=== PATIENT | female | born 1995 | race Two or more races ===

== ENCOUNTER 2022-08-30 08:54 | Emergency (ER) | payer MEDICAID ==
[~2022-08-30] VITALS: Ht 160 cm; Wt 71.9 kg
[2022-08-30 10:38] LABS: Urine Bacteria FEW /hpf (None Seen); Urine Blood Negative /uL (Negative); Urine Mucus FEW (None Seen); Urine Specific Gravity 1.019 (1.001-1.035); Urine WBC 2 /hpf (0 - 5)
[2022-08-30] MEDS ORDERED: NITR-87 PO (11:59)
[2022-08-30 13:42] VITALS: BP 132/69
== END 2022-08-30 13:43 | disposition home or self-care (01) ==
LOC: ER 08:54
DX: O20.0 Threatened abortion (principal); O23.41 Unspecified infection of urinary tract in pregnancy, first trimester; N39.0 Urinary tract infection, site not specified; Z3A.01 Less than 8 weeks gestation of pregnancy
CPT/HCPCS: 36415; 76801; 76817; 81001; 84702

== ENCOUNTER 2023-03-06 11:05 | Observation (INO) | payer MEDICAID ==
[~2023-03-06 11:05] MED LIST: NITR-87 PO
== END 2023-03-06 14:40 | disposition home or self-care (01) ==
LOC: UNDOADMOB 11:05 → LDRP 11:05 → UNDODISOB 14:40
PROVIDERS: ADMIT Obstetrics & Gynecology; ATTEND Obstetrics & Gynecology
DX: O24.419 Gestational diabetes mellitus in pregnancy, unspecified control (principal); Z3A.32 32 weeks gestation of pregnancy
CPT/HCPCS: 59025; 76818; 81002; 82948; 94760; G0378

== ENCOUNTER 2023-03-08 08:45 | Observation (INO) | payer MEDICAID ==
[2023-03-08 10:34] LABS: Fern Testing Negative
[2023-03-08] MEDS ORDERED: PREN-96 PO (10:41)
== END 2023-03-08 11:02 | disposition home or self-care (01) ==
LOC: LDRP 08:45
PROVIDERS: ADMIT Obstetrics & Gynecology; ATTEND Obstetrics & Gynecology
DX: O24.419 Gestational diabetes mellitus in pregnancy, unspecified control (principal); O26.893 Other specified pregnancy related conditions, third trimester; N89.8 Other specified noninflammatory disorders of vagina; Z3A.32 32 weeks gestation of pregnancy
CPT/HCPCS: 59025; 76818; 81002; 84112; 94760; G0378; Q0114

== ENCOUNTER 2023-03-13 10:23 | Observation (INO) | payer MEDICAID ==
[~2023-03-13 10:23] MED LIST changes: +PREN-96 PO
== END 2023-03-13 13:00 | disposition home or self-care (01) ==
LOC: UNDOADMOB 10:23 → LDRP 10:23
PROVIDERS: ADMIT Obstetrics & Gynecology; ATTEND Obstetrics & Gynecology
DX: O24.419 Gestational diabetes mellitus in pregnancy, unspecified control (principal); Z3A.33 33 weeks gestation of pregnancy
CPT/HCPCS: 59025; 76818; 81002; 82948; 82962; G0378

== ENCOUNTER 2023-03-20 09:08 | Observation (INO) | payer MEDICAID | END 2023-03-20 11:59 | disposition home or self-care (01) | LOC: LDRP 10:31 → UNDOADMOB 10:31 → LDRP 10:58 → UNDODISOB 11:59 | PROVIDERS: ADMIT Obstetrics & Gynecology; ATTEND Obstetrics & Gynecology | DX: O24.419 Gestational diabetes mellitus in pregnancy, unspecified control (principal); Z3A.34 34 weeks gestation of pregnancy | CPT/HCPCS: 59025; 76818; 81002; 82948; 82962; 94760; G0378 ==

== ENCOUNTER 2023-03-27 09:04 | Observation (INO) | payer MEDICAID | END 2023-03-27 10:47 | disposition home or self-care (01) | LOC: UNDOADMOB 09:04 → LDRP 09:04 → UNDODISOB 10:47 | PROVIDERS: ADMIT Obstetrics & Gynecology; ATTEND Obstetrics & Gynecology | DX: O24.419 Gestational diabetes mellitus in pregnancy, unspecified control (principal); O26.853 Spotting complicating pregnancy, third trimester; O26.893 Other specified pregnancy related conditions, third trimester; R10.30 Lower abdominal pain, unspecified; O12.03 Gestational edema, third trimester; O99.891 Other specified diseases and conditions complicating pregnancy; M54.9 Dorsalgia, unspecified; Z3A.35 35 weeks gestation of pregnancy | CPT/HCPCS: 59025; 76818; 81002; 82948; 82962; G0378 ==

== ENCOUNTER 2023-03-31 11:21 | Observation (INO) | payer MEDICAID | END 2023-03-31 13:02 | disposition home or self-care (01) | LOC: LDRP 11:21 → UNDOADMOB 11:21 → LDRP 11:34 → UNDODISOB 13:02 | PROVIDERS: ADMIT Obstetrics & Gynecology; ATTEND Obstetrics & Gynecology | DX: O47.03 False labor before 37 completed weeks of gestation, third trimester (principal); O26.853 Spotting complicating pregnancy, third trimester; O24.419 Gestational diabetes mellitus in pregnancy, unspecified control; Z3A.36 36 weeks gestation of pregnancy | CPT/HCPCS: 59025; 81002; 94760; G0378 ==

== ENCOUNTER 2023-04-03 09:00 | Observation (INO) | payer MEDICAID | END 2023-04-03 10:43 | disposition home or self-care (01) | LOC: LDRP 09:00 → UNDOADMOB 09:00 → LDRP 09:25 | PROVIDERS: ADMIT Obstetrics & Gynecology; ATTEND Obstetrics & Gynecology | DX: O24.419 Gestational diabetes mellitus in pregnancy, unspecified control (principal); Z3A.36 36 weeks gestation of pregnancy | CPT/HCPCS: 59025; 76818; 81002; 82948; 82962; 94760; G0378 ==

== ENCOUNTER 2023-04-10 09:14 | Observation (INO) | payer MEDICAID | END 2023-04-10 10:39 | disposition home or self-care (01) | LOC: LDRP 09:14 → UNDOADMOB 09:14 → LDRP 09:24 → UNDODISOB 10:39 | PROVIDERS: ADMIT Obstetrics & Gynecology; ATTEND Obstetrics & Gynecology | DX: O24.419 Gestational diabetes mellitus in pregnancy, unspecified control (principal); Z3A.37 37 weeks gestation of pregnancy | CPT/HCPCS: 59025; 76818; 81002; 82948; 82962; 94760; G0378 ==

== ENCOUNTER 2023-04-17 09:55 | Observation (INO) | payer MEDICAID | END 2023-04-17 14:35 | disposition home or self-care (01) | LOC: UNDOADMOB 09:55 → LDRP 09:55 | PROVIDERS: ADMIT Obstetrics & Gynecology; ATTEND Obstetrics & Gynecology | DX: O24.419 Gestational diabetes mellitus in pregnancy, unspecified control (principal); Z3A.38 38 weeks gestation of pregnancy | CPT/HCPCS: 59025; 76818; 81002; 82948; G0378 ==

== ENCOUNTER 2024-09-20 10:00 | Observation (INO) | payer MEDICAID ==
[2024-09-20 11:19] LABS: Hematocrit 29.5 % (36.0-46.0); Hemoglobin 10.2 g/dL (12.2-16.2); Mean Corpuscular Hemoglobin 30.5 pg (28.0-32.0); Mean Corpuscular Volume 87.9 fL (80.0-100.0); Nucleated Red Blood Cells % 0.0 %
[2024-09-20 11:30] LABS: Albumin 4.0 g/dL (3.2-4.8); Alkaline Phosphatase 76 U/L (46-116); Anion Gap 7 (5-15); BUN/Creatinine Ratio 17.1 (10.0-20.0); Bilirubin, Total 0.3 mg/dL (0.2-1.0); Calcium 9.0 mg/dL (8.7-10.4); Carbon Dioxide 23 mmol/L (20-31); Chloride 107 mmol/L (98-107); Glucose 86 mg/dL (74-106); Potassium 3.5 mmol/L (3.5-5.1); Sodium 137 mmol/L (136-145); Total Protein 6.4 g/dL (5.7-8.2); Uric Acid 4.0 mg/dL (3.1-7.8)
[2024-09-20 11:32] LABS: Alanine Aminotransferase < 9 U/L (7-40); Blood Urea Nitrogen 6 mg/dL (9-23)
[2024-09-20 11:33] LABS: INR 0.9 (0.9-1.15); Partial Thromboplastin Time 26.6 SEC (24.5-34.5); Prothrombin Time 9.6 sec (9.3-11.8)
[2024-09-20 11:51] LABS: Protein, Urine 17.4 mg/dL (1-14)
[2024-09-20 13:45] LABS: Urine Amorphous Crystal FEW /hpf (None Seen); Urine Protein, UAD Negative (Negative)
--- NOTE | 2024-09-20 22:12 | DVHDS2 ---
Discharge Summary Date of Admission Sep 20, 2024 at 10:00 Date of Discharge: Sep 20, 2024 Admitting Diagnosis blurred vision rule out [facility] [place] Labs/Diagnostic Data: Laboratory Results Test 09/20/24 10:52 09/20/24 10:00 White Blood Count 10.2 10^3/uL (4.4-10.8) Red Blood Count 3.35 10^6/uL (4.0-5.20) Hemoglobin 10.2 g/dL (12.2-16.2) Hematocrit 29.5 % (36.0-46.0) Mean Corpuscular Volume 87.9 fL (80.0-100.0) Mean Corpuscular Hemoglobin 30.5 pg (28.0-32.0) Mean Corpuscular Hemoglobin Concent 34.6 g/dL (32.0-36.0) Red Cell Distribution Width 14.5 % (11.8-14.3) Platelet Count 251 10^3/uL (140-450) Mean Platelet Volume 8.5 fL (6.9-10.8) Neutrophils (%) (Auto) 75.2 % (37.0-80.0) Lymphocytes (%) (Auto) 19.2 % (10.0-50.0) Monocytes (%) (Auto) 4.7 % (0.0-12.0) Eosinophils (%) (Auto) 0.7 % (0.0-7.0) Basophils (%) (Auto) 0.2 % (0.0-2.0) Neutrophils # (Auto) 7.7 10 ^3/uL (1.6-8.6) Lymphocytes # (Auto) 2.0 10 ^3/uL (0.4-5.4) Monocytes # (Auto) 0.5 10 ^3/uL (0-1.3) Eosinophils # (Auto) 0.1 10 ^3/uL (0-0.8) Basophils # (Auto) 0 10 ^3/uL (0-0.2) Nucleated Red Blood Cells 0.0 % Prothrombin Time 9.6 sec (9.3-11.8) Prothrombin Time INR 0.90 (0.9-1.15) Activated Partial Thromboplast Time 26.6 SEC (24.5-34.5) Sodium Level 137 mmol/L (136-145) Potassium Level 3.5 mmol/L (3.5-5.1) Chloride Level 107 mmol/L (98-107) Carbon Dioxide Level 23 mmol/L (20-31) Anion Gap 7 (5-15) Blood Urea Nitrogen 6 mg/dL (9-23) Creatinine 0.35 mg/dL (0.550-1.02) Glomerular Filtration Rate Calc 144 mL/min (>90) BUN/Creatinine Ratio 17.1 (10.0-20.0) Serum Glucose 86 mg/dL (74-106) Uric Acid 4.0 mg/dL (3.1-7.8) Calcium Level 9.0 mg/dL (8.7-10.4) Total Bilirubin 0.3 mg/dL (0.2-1.0) Aspartate Amino Transferase (AST) 13 U/L (13-40) Alanine Aminotransferase (ALT) < 9 U/L (7-40) Alkaline Phosphatase 76 U/L (46-116) Total Protein 6.4 g/dL (5.7-8.2) Albumin 4.0 g/dL (3.2-4.8) Urine Color Colorless (Yellow) Urine Clarity Ex.turbid (Clear) Urine pH 8.0 (5.0-9.0) Urine Specific [place] 1.015 (1.001-1.035) Urine Protein Negative (Negative) Urine Ketones Negative (Negative) Urine Blood Negative /uL (Negative) Urine Nitrite Negative (Negative) Urine Bilirubin Negative (Negative) Urine Urobilinogen Normal mg/dL (Negative) Urine Leukocyte Esterase 3+ /uL (Negative) Urine RBC 2 /hpf (0 - 4) Urine Microscopic WBC 5 /HPF (0-5) Urine Squamous Epithelial Cells Few /hpf (<5) Urine Amorphous Crystals Few /hpf (None Seen) Urine Bacteria None seen /hpf (None Seen) Urine Creatinine 64.71 mg/dL (30.0-125.0) Urine Protein/Creatinine Ratio 0.27 Urine Glucose Normal mg/dL (Normal) Urine Total Protein 17.4 mg/dL (1-14) Other Laboratory Tests 09/20/24 10:52 Brief Hx & Hospital Course: NST performed reactive ; US reassuring Condition at Discharge: Good Final Diagnosis/Problems List Blurred Vision, no PIH , reassuring maternal and status Discharge Disposition: Home Discharge Instruct/Medications Diet: Regular Activity: No Restrictions, As Tolerated Scheduled Nitrofurantoin Monohydrate Mac (Macrobid), 100 MG PO BID Vit W/ Ferrous Fumara ( One Daily), 1 TAB PO DAILY, (Reported) Discharge Statement: "Patient was advised to return to the ER or call 911 if any headaches, dizziness, shortness of breath, chest pain, abdominal pain, bleeding, fevers, or worsening of medical condition. Patient was counseled about treatment plan, medications, possible side effects, patientverbalized understanding. All questions were answered to the best of my ability. This discharge took greater then 30 minutes in planning, reviewing documentation, counseling the patient, and discussing with other team members." ASSESSMENT ASSESSMENT Assessment Visit Coding OBGYN Date of Service: Sep 20, 2024 Billing Provider: MANUEL WADSWORTH DO WOODWORKING SHOP HAND Common Visit Codes: [id number] INP/OBS CARE(HIGH), 51293-FQW/OBS SAME DATE (LOW), 74401-WEI/OBS SAME DATE (MOD) WOODWORKING [employer] Procedure Codes: 89303-92- NON-STRESS TEST MANUEL WADSWORTH DO Sep 20, 2024 22:12
== END 2024-09-20 12:11 | disposition home or self-care (01) ==
LOC: LDRP 10:00
PROVIDERS: ADMIT Obstetrics & Gynecology; ATTEND Obstetrics & Gynecology
DX: O26.892 Other specified pregnancy related conditions, second trimester (principal); H53.8 Other visual disturbances; R79.1 Abnormal coagulation profile; Z3A.24 24 weeks gestation of pregnancy; Z79.899 Other long term (current) drug therapy
CPT/HCPCS: 36415; 80053; 81001; 81002; 82570; 84156; 84550; 85025; 85610; 85730; G0378; 59025

== ENCOUNTER 2024-10-18 20:10 | Observation (INO) | payer MEDICAID ==
[~2024-10-18] VITALS: Ht 160 cm; Wt 75.7 kg
--- NOTE | 2024-10-18 21:09 | DVH ---
OB ULTRASOUND, LIMITED CLINICAL INDICATION: vaginal bleeding TECHNIQUE: Multiple grayscale ultrasound and M-mode images were obtained of the pelvis for evaluation of intrauterine . COMPARISON: US OB ULTRASOUND COMP LESS 14WKS on DOS: 08/30/22 FINDINGS/impression: A single living fetus is seen in cephalic presentation. Cervical length 3.4 cm and closed Placenta: Fundal. Amniotic fluid: Visibly normal. NIKKIE 10.4 cm heart rate: 138 beats/min. A complete anatomic survey was not performed on this exam.
[2024-10-18 21:34] LABS: Urine Protein, UAD Negative (Negative)
--- NOTE | 2024-10-18 21:39 | DVHPN2 ---
[facility] Labor Progress Note Date and Time Seen Date Seen: Oct 18, 2024 Time Seen: 21:00 Subjective Patient reports: Other Subjective Comment Subjective 28 y/o (1,0,0,1) IUP 28w5d presents to triage for vaginal discharge for one week. Reports of dysuria and malodorous discharge. Scant Spotting with pericare Report good movement Recently Dx with GDM with current . Stated her GLT 1 hour test results 204 Has visit the parking regulation enforcement officer to check blood sugars. Denies LOF/ contractions/ or bright vaginal bleeding Denies sexual intercourse within the last 24 hours Problems Short interval GDM A1 diet X1 Objective Vital Signs Laboratory Tests Test 10/18/24 20:45 Range/Units Urine Color Pending Urine Clarity Pending Urine pH Pending Urine Specific [place] Pending Urine Protein Pending Urine Ketones Pending Urine Blood Pending Urine Nitrite Pending Urine Bilirubin Pending Urine Urobilinogen Pending Urine Leukocyte Esterase Pending Urine RBC Pending Urine Microscopic WBC Pending Urine Squamous Epithelial Cells Pending Urine Bacteria Pending Urine Glucose Pending Vaginal WBC (Wet Prep) Pending Vaginal RBC (Wet Prep) Pending Vaginal Epithelial Cells (Wet Prep) Pending Vaginal Bacteria (Wet Prep) Pending Vaginal Trichomonas (Wet Prep) Pending Vaginal Yeast (Wet Prep) Pending Vaginal Clue Cells (Wet Prep) Pending Chlamydia trachomatis (RIVAS) Pending Neisseria gonorrhoeae (RIVAS) Pending Preliminary Ultrasound Report Placenta location : Fundal presentation : Cephalic Amniotic Fluid : 10.4 Transvaginal UTS / Cervical Length 3.3 CM Comments: No placental previa or abruption / CX appears closed Monitoring Method Monitoring Method: External Heart Rate Heart Rate Baseline: 125 Heart Rate Variability: Moderate Presence of FHR Accelerations: No Presence of FHR Decelerations: No Changes in Trends of Patterns: No Are all 5 Components of the FH: No Contractions Contractions Frequency: None Membranes Membranes: Intact Vaginal Exam Vag Exam Deferred: Yes Lab Results Lab Results Laboratory Tests Test 10/18/24 20:45 Range/Units Urine Color Pending Urine Clarity Pending Urine pH Pending Urine Specific [place] Pending Urine Protein Pending Urine Ketones Pending Urine Blood Pending Urine Nitrite Pending Urine Bilirubin Pending Urine Urobilinogen Pending Urine Leukocyte Esterase Pending Urine RBC Pending Urine Microscopic WBC Pending Urine Squamous Epithelial Cells Pending Urine Bacteria Pending Urine Glucose Pending Vaginal WBC (Wet Prep) Pending Vaginal RBC (Wet Prep) Pending Vaginal Epithelial Cells (Wet Prep) Pending Vaginal Bacteria (Wet Prep) Pending Vaginal Trichomonas (Wet Prep) Pending Vaginal Yeast (Wet Prep) Pending Vaginal Clue Cells (Wet Prep) Pending Chlamydia trachomatis (RIVAS) Pending Neisseria gonorrhoeae (RIVAS) Pending Consulting with Consulting with: None Assessment Assessment Assessment/Plan Labs ordered NST U/A with urinalysis GC/CH urine Wet mount Blood glucose Ultrasound Plan Pending Utlrasound/Wet mount / U/A results Will continue to monitor patient Plan Plan Plan Pending results will continue to monitor patient Plan discussed with: Patient Visit Coding OBGYN Date of Service: Oct 18, 2024 Billing Provider: DAMEON CHASE DO PROPULSION GENERATOR REPAIRER Common Visit Codes: [id number] OBS CARE (MOD) LUCITA CAN CNMAug 2024 21:39
[2024-10-18 21:42] LABS: Vaginal Trichomonas Not Present
[2024-10-18 21:43] LABS: Vaginal Epithelial Cells Moderate
[2024-10-18 21:44] LABS: Vaginal Clue Cells Rare
[2024-10-18 21:45] LABS: Vaginal Bacteria Moderate
[2024-10-18] MEDS ORDERED: NITR-87 PO (22:12)
--- NOTE | 2024-10-18 22:35 | DVHDS2 ---
Physician Discharge Progress N Final Diagnosis: urinary tract infection in Problems List: (1) UTI in (2) Short interval between pregnancies affecting in second trimester, antepartum (3) Gestational diabetes mellitus (GDM) Commentary: Commentary Patient reports: Other Subjective Comment Subjective 28 y/o (1,0,0,1) IUP 28w5d presents to triage for vaginal discharge for one week. Reports of dysuria and malodorous discharge. Scant Spotting with pericare Report good movement Recently Dx with GDM with current . Stated her GLT 1 hour test results 204 Has visit the rn radiology to check blood sugars. Denies LOF/ contractions/ or bright vaginal bleeding Denies sexual intercourse within the last 24 hours Problems Short interval GDM A1 diet X1 Lab Test 10/18/24 21:15 10/18/24 20:45 Range/Units POC Glucose 86 70-106 mg/dl Urine Color Light-yellow Yellow Urine Clarity Clear Clear Urine pH 7.0 5.0-9.0 Urine Specific [place] 1.019 1.001-1.035 Urine Protein Negative Negative Urine Ketones Negative Negative Urine Blood Negative Negative /uL Urine Nitrite Negative Negative Urine Bilirubin Negative Negative Urine Urobilinogen Normal Negative mg/dL Urine Leukocyte Esterase 3+ Negative /uL Urine RBC 4 0 - 4 /hpf Urine Microscopic WBC 11 H 0-5 /HPF Urine Squamous Epithelial Cells Few <5 /hpf Urine Bacteria Few H None Seen /hpf Urine Glucose Normal Normal mg/dL Vaginal WBC (Wet Prep) Many Vaginal RBC (Wet Prep) Moderate Vaginal Epithelial Cells (Wet Prep) Moderate Vaginal Bacteria (Wet Prep) Moderate Vaginal Trichomonas (Wet Prep) Not present Vaginal Yeast (Wet Prep) None seen Vaginal Clue Cells (Wet Prep) Rare Chlamydia trachomatis (RIVAS) Pending Neisseria gonorrhoeae (RIVAS) Pending Assessment/Plan Labs ordered NST U/A with urinalysis GC/CH urine Wet mount Blood glucose Ultrasound NST Reactive and Reassuring +3 Leukocytes in the urine Plan Pending Utlrasound/Wet mount / U/A results Will continue to monitor patient Plan NST Reactive and Reassuring +3 Leukocytes in the urine Probable urinary tract infection Rx Macrobid 100 mg BID X7 days to pharmacy Pt education to take all medications Keep Scheduled appointment with maternal health Condition on Discharge: Stable Disposition: Home Discharge Instructions: Diet: Regular Activity: No Restrictions, As Tolerated Follow Up/Referral: Keep scheduled appt with Maternal health Medications: Macrobid 100 mg BID X7 days New Medications: Nitrofurantoin Monohydrate Mac (Macrobid) 100 Mg Cap 100 MG PO BID for 7 Days, #14 CAP Continued Medications: Vit W/ Ferrous Fumara ( One Daily) Daily Tab 1 TAB PO DAILY, #90 TAB 3 Refills Discontinued Medications: Nitrofurantoin Monohydrate Mac (Macrobid) 100 Mg Cap 100 MG PO BID for 5 Days, #10 CAP Follow Up Care: Primary Care Provider: Dr Sadie Preston Discharge Statement: "Patient was advised to return to the ER or call 911 if any headaches, dizziness, shortness of breath, chest pain, abdominal pain, bleeding, fevers, or worsening of medical condition. Patient was counseled about treatment plan, medications, possible side effects, patientverbalized understanding. All questions were answered to the best of my ability. This discharge took greater then 30 minutes in planning, reviewing documentation, counseling the patient, and discussing with other team members." Discharge Care Plan Problem Increase in fluid intake, Risk for infection UTI in Goals Know Self care, Know Condition Instructions Proper handwashing Visit Coding OBGYN Date of Service: Oct 18, 2024 Billing Provider: DAMEON PRESTON DO CLINICAL APPLICATIONS SPECIALIST Common Visit Codes: [id number] OBS CARE (MOD) LUCITA CANug 2024 22:35
[2024-10-20 12:07] LABS: Chlamydia Trachomatis, NAA Negative (Negative); Neisseria gonorrhoeae, NAA Negative (Negative)
== END 2024-10-18 22:50 | disposition home or self-care (01) ==
LOC: LDRP 20:10
PROVIDERS: ADMIT Obstetrics & Gynecology; ATTEND Obstetrics & Gynecology
DX: O23.43 Unspecified infection of urinary tract in pregnancy, third trimester (principal); N39.0 Urinary tract infection, site not specified; O24.419 Gestational diabetes mellitus in pregnancy, unspecified control; Z3A.28 28 weeks gestation of pregnancy; Z98.890 Other specified postprocedural states; Z79.899 Other long term (current) drug therapy
CPT/HCPCS: 59025; 76815; 81001; 81002; 82948; 82962; 87210; 87491; 87591; 94760; G0378

== ENCOUNTER 2024-11-11 09:08 | Observation (INO) | payer MEDICAID ==
--- NOTE | 2024-11-11 10:36 | DVH ---
BIOPHYSICAL PROFILE HISTORY: GDMA TECHNIQUE: Multiple transabdominal real-time grayscale sonographic images through the gravid uterus o f the fetus with duplex doppler color flow and M-mode spectral analysis FINDINGS: BIOPHYSICAL PROFILE: breathing score: 2 movement score: 2 tone score: 2 Quantitative NIKKIE score: 2 (NIKKIE: 11.7 cm.) Total score: 8/8 Single live fetus in cephalic presentation. heart rate 127 beats per minute. Fundal placenta without previa or abruption Biophysical profile score 8/8 corresponding to an ALICIA of 01/05/25 IMPRESSION: Biophysical profile score: 8/8
--- NOTE | 2024-11-11 14:43 | DVHDS2 ---
Physician Discharge Progress N Final Diagnosis: gdm 32wks Operations or Procedures: Operations or Procedures nst reactive reviwed,sono Condition on Discharge: Good Disposition: Home Discharge Instructions: Diet: Consistent carbohydrate Activity: Light activity Medications: na Follow Up Care: Specialist: 4d Discharge Statement: "Patient was advised to return to the ER or call 911 if any headaches, dizziness, shortness of breath, chest pain, abdominal pain, bleeding, fevers, or worsening of medical condition. Patient was counseled about treatment plan, medications, possible side effects, patientverbalized understanding. All questions were answered to the best of my ability. This discharge took greater then 30 minutes in planning, reviewing documenta tion, counseling the patient, and discussing with other team members." Visit Coding OBGYN Date of Service: Nov 11, 2024 Billing Provider: DAMEON CHASE DO POWERHOUSE OILER Common Visit Codes: [id number] OBS CARE (HIGH) POWERHOUSE OILER Procedure Codes: 96650-09- NON-STRESS TEST DAMEON CHASE DO Nov 11, 2024 14:43
== END 2024-11-11 11:03 | disposition home or self-care (01) ==
LOC: LDRP 09:08 → UNDOADMOB 09:33 → LDRP 09:33
PROVIDERS: ADMIT Obstetrics & Gynecology; ATTEND Obstetrics & Gynecology
DX: O24.419 Gestational diabetes mellitus in pregnancy, unspecified control (principal); Z3A.32 32 weeks gestation of pregnancy; Z98.890 Other specified postprocedural states
CPT/HCPCS: 59025; 76819; 81002; 82962; 94760; G0378

== ENCOUNTER 2024-11-16 08:04 | Observation (INO) | payer MEDICAID ==
--- NOTE | 2024-11-16 08:55 | DVH ---
BIOPHYSICAL PROFILE HISTORY: GDMA1 Comparison Study: US BIOPHYSICAL PROFILE on DOS: 11/11/24, US OBSTERICAL LIMITED on DOS: 10/18/24, US BI OPHYSICAL PROFILE on DOS: 04/17/23, US BIOPHYSICAL PROFILE on DOS: 04/10/23, US BIOPHYSICAL PROFILE on DO S: 04/03/23 TECHNIQUE: Multiple real-time grayscale sonographic images through the gravid uterus of the fetus wi th duplex Doppler color flow and M-mode spectral analysis FINDINGS: BIOPHYSICAL PROFILE: breathing score: 2 movement score: 2 tone score: 2 Quantitative NIKKIE score: 2 (NIKKIE: 11.3 Cm.) Total score: 8 The cervix is not visualized Single live fetus in cephalic presentation. heart rate 119 beats per minute. Fundal placenta without previa or abruption IMPRESSION: Biophysical profile score: 8
--- NOTE | 2024-11-17 23:07 | DVHDS2 ---
Physician Discharge Progress N Final Diagnosis: gdm 32wks Operations or Procedures: Operations or Procedures nst reactive reviwed,sono Condition on Discharge: Good Disposition: Home Discharge Instructions: Diet: Consistent carbohydrate Activity: Light activity Medications: na Follow Up Care: Specialist: 3d Discharge Statement: "Patient was advised to return to the ER or call 911 if any headaches, dizziness, shortness of breath, chest pain, abdominal pain, bleeding, fevers, or worsening of medical condition. Patient was counseled about treatment plan, medications, possible side effects, patientverbalized understanding. All questions were answered to the best of my ability. This discharge took greater then 30 minutes in planning, reviewing documenta tion, counseling the patient, and discussing with other team members." Visit Coding OBGYN Date of Service: Nov 16, 2024 Billing Provider: DAMEON CHASE DO PRODUCT TRANSFER PUMPER Common Visit Codes: [id number] INP/OBS CARE (HIGH) PRODUCT TRANSFER PUMPER Procedure Codes: 61241-11- NON-STRESS TEST DAMEON CHASE DO Nov 17, 2024 23:07
== END 2024-11-16 09:28 | disposition home or self-care (01) ==
LOC: UNDOADMOB 08:04 → LDRP 08:04
PROVIDERS: ADMIT Obstetrics & Gynecology; ATTEND Obstetrics & Gynecology
DX: O24.419 Gestational diabetes mellitus in pregnancy, unspecified control (principal); Z3A.32 32 weeks gestation of pregnancy; Z98.890 Other specified postprocedural states
CPT/HCPCS: 59025; 76819; 81002; 82948; 82962; 94760; G0378

== ENCOUNTER 2024-11-24 06:35 | Observation (INO) | payer MEDICAID ==
--- NOTE | 2024-11-24 09:11 | DVH ---
CLINICAL HISTORY: Gestational diabetes. COMPARISON: US BIOPHYSICAL PROFILE on DOS: 11/16/24, US BIOPHYSICAL PROFILE on DOS: 11/11/24, US OBSTERIC AL LIMITED on DOS: 10/18/24 TECHNIQUE: biophysical profile was performed. Transabdominal sonographic images of the fetus we re obtained. FINDINGS: The fetus is in cephalic position. heart rate measures 121 BPM. Amniotic fluid index measures 12.7 cm. The placenta is fundal/right lateral in position. BPP profile is an overall score of 8/8, with 2/2 points for breathing, with at least one episode of breathing over a 30 second duration during a 30 minute observation, 2/2 points for m ovements, with 3 or more discrete body or limb movements, 2/2 points for tone, with one or more episodes of extremity extension with return to flexion, or opening and closing of hand, and 2/ 2 points for amniotic fluid, with at least 1 pocket of amniotic fluid that measures 2 cm in 2 perpend icular planes. IMPRESSION: BPP score of 8/8.
--- NOTE | 2024-11-26 16:38 | DVHDS2 ---
Physician Discharge Progress N Final Diagnosis: gdm 34wks Operations or Procedures: Operations or Procedures nst reactive reviwed,sono Condition on Discharge: Good Disposition: Home Discharge Instructions: Diet: Consistent carbohydrate Activity: Light activity Medications: na Follow Up Care: Specialist: 1w Discharge Statement: "Patient was advised to return to the ER or call 911 if any headaches, dizziness, shortness of breath, chest pain, abdominal pain, bleeding, fevers, or worsening of medical condition. Patient was counseled about treatment plan, medications, possible side effects, patientverbalized understanding. All questions were answered to the best of my ability. This discharge took greater then 30 minutes in planning, reviewing documenta tion, counseling the patient, and discussing with other team members." Visit Coding OBGYN Date of Service: Nov 24, 2024 Billing Provider: DAMEON CHASE DO FOUNDRY MELT SUPERVISOR Common Visit Codes: [id number] OBS CARE (HIGH) FOUNDRY MELT SUPERVISOR Procedure Codes: 76537-05- NON-STRESS TEST DAMEON CHASE DO Nov 26, 2024 16:38
== END 2024-11-24 09:20 | disposition home or self-care (01) ==
LOC: LDRP 08:04 → UNDOADMOB 08:04 → LDRP 08:12 → UNDODISOB 09:20
PROVIDERS: ADMIT Obstetrics & Gynecology; ATTEND Obstetrics & Gynecology
DX: O24.419 Gestational diabetes mellitus in pregnancy, unspecified control (principal); Z3A.34 34 weeks gestation of pregnancy; Z98.890 Other specified postprocedural states
CPT/HCPCS: 59025; 76819; 81002; 82948; 94760; G0378

== ENCOUNTER 2024-11-30 08:14 | Observation (INO) | payer MEDICAID ==
--- NOTE | 2024-11-30 09:06 | DVH ---
BIOPHYSICAL PROFILE HISTORY: GDMA1 TECHNIQUE: Multiple transabdominal real-time grayscale sonographic images through the gravid uterus of the fetus with duplex Doppler color flow and M-mode spectral analysis FINDINGS: BIOPHYSICAL PROFILE: breathing score: 2 movement score: 2 tone score: 2 Quantitative NIKKIE score: 2 (NIKKIE: 10.9 Cm.) Total score: 8 The cervix well visualized. Single live fetus in cephalic presentation. heart rate 124 beats per minute. Fundal placenta without previa or abruption IMPRESSION: Biophysical profile score: 8
--- NOTE | 2024-11-30 10:16 | DVHDS2 ---
Physician Discharge Progress N Final Diagnosis: testing for GDMA1 Operations or Procedures: Operations or Procedures S: 28y/o IUP @ 34.6 weeks EGA presents for scheduled testing for GDMA1 Denies WEAVER, vision changes, RUQ pain, LOF, VB O: VSS, see CPN Reactive NST Sono wnl Bedside blood glucose WNL A: 28y/o IUP @ 34.6 weeks GDMA1 P: Dr. Preston consulted, agrees with POC Discharge home PTL, FKC, and PreE precautions given follow up in one week RTC as scheduled Other Interventions Other Interventions [place] [address] Ph: [phone] DIAGNOSTIC IMAGING Diagnostic Imaging Report : [id number] Signed PATIENT: OSCAR RODRIGUEZT: [id number] UNIT: [id number] : 1995 LOC: [facility] ROOM / [facility]: [facility] / A AGE / SEX: 28 / F ADM STATUS: ADM IN SERVICE 6 ORDERING PHYSICIAN: RAMY HINTON CNM PROCEDURE(s): BPP - BIOPHYSICAL PROFILE REASON: GDMA1 ORDER NUMBER(s): [id number], ACCESSION NUMBER(s): [id number] BIOPHYSICAL PROFILE HISTORY: GDMA1 TECHNIQUE: Multiple transabdominal real-time grayscale sonographic images through the gravid uterus of the fetus with duplex Doppler color flow and M-mode spectral analysis FINDINGS: BIOPHYSICAL PROFILE: breathing score: 2 movement score: 2 tone score: 2 Quantitative NIKKIE score: 2 (NIKKIE: 10.9 Cm.) Total score: 8 The cervix well visualized. Single live fetus in cephalic presentation. heart rate 124 beats per minute. Fundal placenta without previa or abruption IMPRESSION: Biophysical profile score: 8 ATED BY: NICOLE WOODS MD DICTATED DATE/TIME: 11/30/24903 SIGNED BY: NICOLE WOODS MD SIGNED DATE/TIME: 11/30/24903 CC: Condition on Discharge: Stable Disposition: Home Discharge Instructions: Diet: Consistent carbohydrate Activity: No Restrictions, As Tolerated Follow Up/Referral: Follow up in one week Medications: See med list Follow Up Care: Specialist: follow up in one week Discharge Statement: "Patient was advised to return to the ER or call 911 if any headaches, dizziness, shortness of breath, chest pain, abdominal pain, bleeding, fevers, or worsening of medical condition. Patient was counseled about treatment plan, medications, possible side effects, patientverbalized understanding. All questions were answered to the best of my ability. This discharge took greater then 30 minutes in planning, reviewing documentation, counseling the patient, and discussing with other team members." Visit Coding OBGYN Date of Service: Nov 30, 2024 Billing Provider: RAMY HINTON CNM RADIAL DRILL PRESS SET UP OPERATOR Common Visit Codes: [id number] OBS CARE (HIGH) RADIAL DRILL PRESS SET UP OPERATOR Procedure Codes: 88130-46- NON-STRESS TEST RAMY HINTON CNM Nov 30, 2024 10:16
== END 2024-11-30 10:31 | disposition home or self-care (01) ==
LOC: LDRP 08:14
PROVIDERS: ADMIT Obstetrics & Gynecology; ATTEND Obstetrics & Gynecology
DX: O24.419 Gestational diabetes mellitus in pregnancy, unspecified control (principal); Z3A.34 34 weeks gestation of pregnancy; Z98.890 Other specified postprocedural states
CPT/HCPCS: 59025; 76819; 81002; 82948; 82962; 94760; G0378

== ENCOUNTER 2024-12-07 02:30 | Observation (INO) | payer MEDICAID ==
--- NOTE | 2024-12-07 11:56 | DVH ---
BIOPHYSICAL PROFILE HISTORY: GDMA1 Comparison Study: US BIOPHYSICAL PROFILE on DOS: 11/30/24, US BIOPHYSICAL PROFILE on DOS: 11/24/24, US BIOPHYSICAL PROFILE on DOS: 11/16/24, US BIOPHYSICAL PROFILE on DOS: 11/11/24, US OBSTERICAL LIMITED on D OS: 10/18/24 TECHNIQUE: Multiple real-time grayscale sonographic images through the gravid uterus of the fetus wi th duplex Doppler color flow and M-mode spectral analysis FINDINGS: BIOPHYSICAL PROFILE: breathing score: 2 movement score: 2 tone score: 2 Quantitative NIKKIE score: 2 (NIKKIE: 11.1 Cm.) Total score: 8 The cervix is not visualized Single live fetus in cephalic presentation. heart rate 125 beats per minute. Grade 2, fundal placenta without previa or abruption IMPRESSION: Biophysical profile score: 8
--- NOTE | 2024-12-07 13:27 | DVHDS2 ---
Physician Discharge Progress N Final Diagnosis: testing for GDM, A1 Operations or Procedures: Operations or Procedures 29yo IUP@35.6wks VSS NST reactive FKC/PTL precautions reviewed. Dr. Preston consulted, agrees with POC. Other Interventions Other Interventions [address] [address] Ph: [phone] DIAGNOSTIC IMAGING Diagnostic Imaging Report : [id number] Signed PATIENT: OSCAR RODRIGUEZT: [id number] UNIT: [id number] : 1995 LOC: LD ROOM / BED: TRIAGE2 / A AGE / SEX: 29 / F ADM STATUS: ADM IN SERVICE 1037 ORDERING PHYSICIAN: RAMY HINOTN CNM PROCEDURE(s): BPP - BIOPHYSICAL PROFILE REASON: GDMA1 ORDER NUMBER(s): [id number], ACCESSION NUMBER(s): [id number] BIOPHYSICAL PROFILE HISTORY: GDMA1 Comparison Study: US BIOPHYSICAL PROFILE on DOS: 11/30/24, US BIOPHYSICAL PROFILE on DOS: 11/24/24, US BIOPHYSICAL PROFILE on DOS: 11/16/24, US BIOPHYSICAL PROFILE on DOS: 11/11/24, US OBSTERICAL LIMITED on DOS: 10/18/24 TECHNIQUE: Multiple real-time grayscale sonographic images through the gravid uterus of the fetus with duplex Doppler color flow and M-mode spectral analysis FINDINGS: BIOPHYSICAL PROFILE: breathing score: 2 movement score: 2 tone score: 2 Quantitative NIKKIE score: 2 (NIKKIE: 11.1 Cm.) Total score: 8 The cervix is not visualized Single live fetus in cephalic presentation. heart rate 125 beats per minute. Grade 2, fundal placenta without previa or abruption IMPRESSION: Biophysical profile score: 8 ATED BY: SRIRAM ELKINS MD DICTATED DATE/TIME: 12/07/24 115 SIGNED BY: SRIRAM ELKINS MD SIGNED DATE/TIME: 12/07/24 115 CC: Condition on Discharge: Stable Disposition: Home Discharge Instructions: Diet: Consistent carbohydrate Activity: No Restrictions, As Tolerated Medications: see med list Follow Up Care: Specialist: f/u in 1wk Discharge Statement: "Patient was advised to return to the ER or call 911 if any headaches, dizziness, shortness of breath, chest pain, abdominal pain, bleeding, fevers, or worsening of medical condition. Patient was counseled about treatment plan, medications, possible side effects, patientverbalized understanding. All questions were answered to the best of my ability. This discharge took greater then 30 minutes in planning, reviewing documentation, counseling the patient, and discussing with other team members." Visit Coding OBGYN Date of Service: Dec 07, 2024 Billing Provider: RAMY HINTON CNM ELECTRONIC INTEGRATED SYSTEMS MECHANIC Common Visit Codes: 91830-VIRUOHY OBS CARE (HIGH) ELECTRONIC INTEGRATED SYSTEMS MECHANIC Procedure Codes: 47984-56- NON-STRESS TEST RAMY HINTON CNM Dec 07, 2024 13:27
== END 2024-12-07 10:58 | disposition home or self-care (01) ==
LOC: LDRP 10:34 → UNDOADMOB 10:34 → LDRP 10:36
PROVIDERS: ADMIT Obstetrics & Gynecology; ATTEND Obstetrics & Gynecology
DX: O24.419 Gestational diabetes mellitus in pregnancy, unspecified control (principal); Z3A.35 35 weeks gestation of pregnancy; Z98.890 Other specified postprocedural states
CPT/HCPCS: 59025; 76819; 81002; 82948; 82962; 94760; G0378

== ENCOUNTER 2024-12-14 06:43 | Observation (INO) | payer MEDICAID ==
--- NOTE | 2024-12-14 13:38 | DVH ---
BIOPHYSICAL PROFILE HISTORY: GDMA1 TECHNIQUE: Multiple transabdominal real-time grayscale sonographic images through the gravid uterus of the fetus with duplex Doppler color flow and M-mode spectral analysis FINDINGS: BIOPHYSICAL PROFILE: breathing score: 2 movement score: 2 tone score: 2 Quantitative NIKKIE score: 2 (NIKKIE: 11.3 Cm.) Total score: 8/8 The cervix obscured by head Single live fetus in cephalic presentation. heart rate 139 beats per minute. Fundal Grade 2-3 placenta without previa or abruption Single live fetus at 36 weeks 6 days Biophysical profile score 8/8 corresponding to an ALICIA of 01/05/2025. IMPRESSION: 1. Biophysical profile score: 8/8
--- NOTE | 2024-12-14 14:54 | DVHDS2 ---
Physician Discharge Progress N Final Diagnosis: testing for GDM, A1 Operations or Procedures: Operations or Procedures 29yo IUP@36.6wks VSS NST reactive FKC/PTL precautions reviewed Dr. Preston consulted, agrees with POC. Other Interventions Other Interventions [address] [address] Ph: [phone] DIAGNOSTIC IMAGING Diagnostic Imaging Report : [id number] Signed PATIENT: OSCAR RODRIGUEZT: [id number] UNIT: [id number] : 1995 LOC: LD ROOM / BED: [place] / A AGE / SEX: 29 / F ADM STATUS: ADM IN SERVICE 1247 ORDERING PHYSICIAN: RAMY IHNTON CNM PROCEDURE(s): BPP - BIOPHYSICAL PROFILE REASON: GDMA1 ORDER NUMBER(s): [id number], ACCESSION NUMBER(s): [id number] BIOPHYSICAL PROFILE HISTORY: GDMA1 TECHNIQUE: Multiple transabdominal real-time grayscale sonographic images thr ough the gravid uterus of the fetus with duplex Doppler color flow and M-mode spectral analysis FINDINGS: BIOPHYSICAL PROFILE: breathing score: 2 movement score: 2 tone score: 2 Quantitative NIKKIE score: 2 (NIKKIE: 11.3 Cm.) Total score: 8/8 The cervix obscured by head Single live fetus in cephalic presentation. heart rate 139 beats per minut e. Fundal Grade 2-3 placenta without previa or abruption Single live fetus at 36 weeks 6 days Biophysical profile score 8/8 corresponding to an ALICIA of 01/05/2025. IMPRESSION: 1. Biophysical profile score: 8/8 ATED BY: SONAM SANCHEZ Jr., DO DICTATED DATE/TIME: 12/14/241335 SIGNED BY: SONAM SANCHEZ Jr., DO SIGNED DATE/TIME: 12/14/241335 CC: Condition on Discharge: Stable Disposition: Home Discharge Instructions: Diet: Consistent carbohydrate Activity: No Restrictions, As Tolerated Follow Up/Referral: Return to [facility] next fridayDecember 21 at 10:00 am for NST/BPP. Medications: see med list Follow Up Care: Specialist: f/u in 1wk Discharge Statement: "Patient was advised to return to the ER or call 911 if any headaches, dizziness, shortness of breath, chest pain, abdominal pain, bleeding, fevers, or worsening of medical condition. Patient was counseled about treatment plan, medications, possible side effects, patientverbalized understanding. All questions were answered to the best of my ability. This discharge took greater then 30 minutes in planning, reviewing documentation, counseling the patient, and discussing with other team members." Visit Coding OBGYN Date of Service: Dec 14, 2024 Billing Provider: RAMY HINTON CNM MACHINE BUNCH MAKER Common Visit Codes: [id number] OBS CARE (HIGH) MACHINE BUNCH MAKER Procedure Codes: 32346-08- NON-STRESS TEST RAMY HINTON CNM Dec 14, 2024 14:54
== END 2024-12-14 14:34 | disposition home or self-care (01) ==
LOC: LDRP 12:07 → UNDOADMOB 12:07 → LDRP 12:49
PROVIDERS: ADMIT Obstetrics & Gynecology; ATTEND Obstetrics & Gynecology
DX: O24.410 Gestational diabetes mellitus in pregnancy, diet controlled (principal); Z3A.36 36 weeks gestation of pregnancy; Z98.890 Other specified postprocedural states
CPT/HCPCS: 59025; 76819; 81002; 82948; 82962; 94760; G0378

== ENCOUNTER 2024-12-21 08:50 | Observation (INO) | payer MEDICAID ==
--- NOTE | 2024-12-21 09:45 | DVH ---
CLINICAL HISTORY: Gestational diabetes. COMPARISON: US BIOPHYSICAL PROFILE on DOS: 12/14/24, US BIOPHYSICAL PROFILE on DOS: 12/07/24, US BIOPHY SICAL PROFILE on DOS: 11/30/24 TECHNIQUE: biophysical profile was performed. Transabdominal sonographic images of the fetus we re obtained. FINDINGS: The fetus is in cephalic position. heart rate measures 127 BPM. Amniotic fluid index measures 7.2 cm. The placenta is fundal in position. BPP profile is an overall score of 8/8, with 2/2 points for breathing, with at least one episode of breathing over a 30 second duration during a 30 minute observation, 2/2 points for m ovements, with 3 or more discrete body or limb movements, 2/2 points for tone, with one or more episodes of extremity extension with return to flexion, or opening and closing of hand, and 2/ 2 points for amniotic fluid, with at least 1 pocket of amniotic fluid that measures 2 cm in 2 perpend icular planes. IMPRESSION: BPP score of 8/8.
--- NOTE | 2024-12-21 10:25 | DVHDS2 ---
Physician Discharge Progress N Final Diagnosis: testing for GDM, A1 Operations or Procedures: Operations or Procedures 29yo IUP@37.6wks VSS NST reactive after 40 min BPP 8/8 FKC/PreE/Labor precautions reviewed Other Interventions Other Interventions [address] [address] Ph: [phone] DIAGNOSTIC IMAGING Diagnostic Imaging Report : [id number] Signed PATIENT: OSCAR RODRIGUEZT: [id number] UNIT: [id number] : 1995 LOC: [facility] ROOM / BED: TRIAGE2 / A AGE / SEX: 29 / F ADM STATUS: ADM IN SERVICE 5 ORDERING PHYSICIAN: RAMY HINTON CNM PROCEDURE(s): BPP - BIOPHYSICAL PROFILE REASON: GDMA1 ORDER NUMBER(s): [id number], ACCESSION NUMBER(s): [id number] CLINICAL HISTORY: Gestational diabetes. COMPARISON: US BIOPHYSICAL PROFILE on DOS: 12/14/24, US BIOPHYSICAL PROFILE on DOS: 12/07/24, US BIOPHYSICAL PROFILE on DOS: 11/30/24 TECHNIQUE: biophysical profile was performed. Transabdominal sonographic images of the fetus were obtained. FINDINGS: The fetus is in cephalic position. heart rate measures 127 BPM. Amniotic fluid index measures 7.2 cm. The placenta is fundal in position. BPP profile is an overall score of 8/8, with 2/2 points for breathing, with at least one episode of breathing over a 30 second duration during a 30 minute observation, 2/2 points for movements, with 3 or more discrete body or limb movements, 2/2 points for tone, with one or more episodes of extremity extension with return to flexion, or opening and closing of hand, and 2/2 points for amniotic fluid, with at least 1 pocket of amniotic fluid that measures 2 cm in 2 perpendicular planes. IMPRESSION: BPP score of 8/8. ATED BY: BETHANY ALVARADO DO DICTATED DATE/TIME: 12/21/24942 SIGNED BY: BETHANY ALVARADO DO SIGNED DATE/TIME: 10/14/25 0943 CC: Condition on Discharge: Stable Disposition: Home Discharge Instructions: Diet: Consistent carbohydrate Activity: No Restrictions, As Tolerated Medications: see med list Follow Up Care: Specialist: f/u in 3 days Discharge Statement: "Patient was advised to return to the ER or call 911 if any headaches, dizziness, shortness of breath, chest pain, abdominal pain, bleeding, fevers, or worsening of medical condition. Patient was counseled about treatment plan, medications, possible side effects, patientverbalized understanding. All questions were answered to the best of my ability. This discharge took greater then 30 minutes in planning, reviewing documentation, counseling the patient, and discussing with other team members." Visit Coding OBGYN Date of Service: Dec 21, 2024 Billing Provider: RAMY HINTON CNM RETURN CLERK Common Visit Codes: [id number] OBS CARE (HIGH) RETURN CLERK Procedure Codes: 95531-08- NON-STRESS TEST RAMY HINTON CNM Dec 21, 2024 10:25
== END 2024-12-21 10:39 | disposition home or self-care (01) ==
LOC: LDRP 08:50
PROVIDERS: ADMIT Obstetrics & Gynecology; ATTEND Obstetrics & Gynecology
DX: O24.419 Gestational diabetes mellitus in pregnancy, unspecified control (principal); Z3A.37 37 weeks gestation of pregnancy; Z98.890 Other specified postprocedural states; Z79.899 Other long term (current) drug therapy
CPT/HCPCS: 59025; 76819; 81002; 82948; 82962; 94760; G0378